=== PATIENT | female | born 1990 | race Caucasian/White ===

== ENCOUNTER 2020-04-06 14:13 | Emergency (ER) | payer OTHER ==
[2020-04-06] MEDS ORDERED: ACETAMINOPHEN 325 MG TABLET PO ONE (15:05)
--- NOTE | 2020-04-06 16:25 | ER Document Report ---
HPI - HPI Time Seen by Provider: 04/06/20 14:33 Pain Level: 5 Context: Patient is a 29-year-old female who presents to the emergency department with a chief complaint of body aches and generally not feeling well. Patient states that her symptoms started a couple days ago.She also states that she has a headache and a runny nose. States that she is feeling tired. Patient does have a history of anxiety. She does not know if she has had any contact with anybody who has tested positive for COVID-19. Takes Vistaril as needed for anxiety. - ROS Systems Reviewed and Negative: Yes All other systems reviewed and negative - CONSTITUTIONAL Constitutional: DENIES: Fever, Chills Notes: Body aches - EENT EENT: DENIES: Sore Throat, Ear Pain - NEURO Neurology: REPORTS: Headache. DENIES: Weakness - RESPIRATORY Respiratory: DENIES: Trouble Breathing, Coughing - GASTROINTESTINAL Gastrointestinal: DENIES: Abdominal Pain, Nausea, Patient vomiting - REPRODUCTIVE Reproductive: DENIES: : - MUSCULOSKELETAL Musculoskeletal: DENIES: Extremity pain - DERM Skin Color: Normal Skin Problems: None Past Medical History - General Information source: Patient - Social History Smoking Status: Current Every Day Smoker Chew tobacco use (# tins/day): No Frequency of alcohol use: None Drug Abuse: None Family History: Reviewed & Not Pertinent Patient has homicidal ideation: No Vertical Provider Document - CONSTITUTIONAL Agree With Documented VS: Yes Exam Limitations: No Limitations General Appearance: No Apparent Distress - HEENT HEENT: Atraumatic, Normocephalic, PERRLA Notes: Edema and erythema noted to nasal mucosa - NECK Neck: Normal Inspection - RESPIRATORY Respiratory: Breath Sounds Normal, No Respiratory Distress - CARDIOVASCULAR Cardiovascular: Regular Rate, Regular Rhythm Pulses: Normal: Radial - GI/ABDOMEN Gastrointestinal: Abdomen Soft, Abdomen Non-Tender - MUSCULOSKELETAL/EXTREMETIES Musculoskeletal/Extremeties: FROM - NEURO Level of Consciousness: Awake, Alert, Appropriate Motor/Sensory: No Motor Deficit, No Sensory Deficit - DERM Integumentary: Warm, Dry, No Rash Course - Re-evaluation Re-evalutation: 04/07/20 01:25 Rapid strep test is negative. Patient states that she feels better after receiving Tylenol. Based off the patient's symptoms and the current pandemic going on with COVID-19, the patient will be tested for COVID-19. Advised the patient to take Tylenol as prescribed. Patient agrees to self isolate at home. Lung sounds are clear. I will low suspicion for pneumonia, urinary tract infection, or any life-threatening etiology at this time. Follow-up precautions were given. Verbal discharge instructions were given to the patient. They verbalized understanding. They are stable for discharge. - Vital Signs Vital signs: Temp Pulse Resp BP Pulse Ox 99.4 F 74 16 135/78 H 100 04/06/20 14:31 04/06/20 14:31 04/06/20 14:31 04/06/20 14:31 04/06/20 14:31 Discharge - Discharge Clinical Impression: Rhinorrhea, Suspected COVID-19 virus infection Condition: Stable Disposition: HOME, SELF-CARE Instructions: COVID-19 Guidance for Persons Under Investigation Additional Instructions: You were seen today in the emergency department for a runny nose. Here a rapid strep test was negative, but a throat culture is being sent to check if there is any other bacteria that needs to be treated. Start cetirizine and Flonase. You can take these medications [id number] or use the prescription provided. You are also being tested for COVID-19. Please self isolate in your home until your results are back. If your results are positive, you must stay in your home for at least 2 weeks. Follow-up with 1 of the clinics below. Prescriptions: Cetirizine HCl [All Day Allergy] 10 mg PO DAILY #30 tablet Fluticasone Propionate [Flonase Nasal Townsend 50 Mcg/Townsend 16 gm] 2 sprays NASL DAILY #1 inhaler Referrals: [facility] [Provider Group] - Follow up as needed [facility] [Provider Group] - Follow up as needed
[2020-04-06 17:42] VITALS: BP 118/80
== END 2020-04-06 16:38 | disposition home or self-care (01) ==
LOC: ER 14:13
DX: M79.10 Myalgia, unspecified site (principal); J34.89 Other specified disorders of nose and nasal sinuses; F41.9 Anxiety disorder, unspecified; F17.200 Nicotine dependence, unspecified, uncomplicated; Z20.828 Contact with and (suspected) exposure to other viral communicable diseases; R51 Headache
CPT/HCPCS: 99283; 87070; 87880; 87635; C9803